=== PATIENT | female | born 1940 | race Caucasian/White ===

== ENCOUNTER 2022-01-04 11:28 | Emergency (ER) | payer MEDICARE ==
[2022-01-04 11:31] VITALS: TEMP 98
--- NOTE | 2022-01-04 11:48 | ED ---
General Adult HPI - General Chief complaint: Recheck/Abnormal Lab/Rx Stated complaint: abnl CT Time Seen by Provider: 01/04/22 11:29 Source: patient, family, RN notes reviewed Mode of arrival: wheelchair Limitations: no limitations - History of Present Illness Initial comments: Patient is a pleasant 81-year-old female presenting to the emergency department from CT department. Discussed with radiologist with regards to patient having an next pitcher subdural with shift. Patient states she did have 2 falls, on the first and second of this month. Patient did strike her head. Patient states her legs just gave out of on her and that's why she fell. Patient feels like she's been doing well since that time. is present and states patient has had a couple episodes of confusion where she was saying inappropriate words. Patient reportedly also was visualized dragging her left leg when she was trying to walk by the daughter. Patient does not take any anticoagulants other than 81 mg baby aspirin - Related Data Home Medications Medication Instructions Recorded Confirmed Acetaminophen Tab [Tylenol Tab] 1,000 mg PO BID 01/04/22 01/04/22 Aspirin EC [Ecotrin Low Dose] 81 mg PO HS 01/04/22 01/04/22 Bladder Control 1 tab PO BID 01/04/22 01/04/22 Cefuroxime [Ceftin] 250 mg PO Q12H 01/04/22 01/04/22 Cholecalciferol [Vitamin D3 (25 50 mcg PO DAILY 01/04/22 01/04/22 Mcg = 1000 Iu)] Glucosamine Sulfate 500 mg PO HS 01/04/22 01/04/22 Lovastatin [Mevacor] 20 mg PO HS 01/04/22 01/04/22 Multivitamins, Thera [Multivitamin 1 tab PO DAILY 01/04/22 01/04/22 (formulary)] [place]-3 Fatty Acids/Fish Oil [Fish 1 cap PO DAILY 01/04/22 01/04/22 Oil 1,000 mg Softgel] Omeprazole 20 mg PO BID 01/04/22 01/04/22 Turmeric Root Extract [Turmeric] 500 mg PO HS 01/04/22 01/04/22 Venlafaxine HCl [Effexor XR] 75 mg PO BID 01/04/22 01/04/22 Vit C/E/Zn/Coppr/Lutein/Zeaxan 1 cap PO DAILY 01/04/22 01/04/22 [Preservision Areds 2 Softgel] Allergies Allergy/AdvReac Type Severity Reaction Status Date / Time No Known Allergies Allergy Verified 01/04/22 11:58 Review of Systems ROS Statement: Those systems with pertinent positive or pertinent negative responses have been documented in the HPI. ROS Other: All systems not noted in ROS Statement are negative. Constitutional: Denies: fever Eyes: Denies: eye pain ENT: Denies: ear pain Respiratory: Denies: cough Cardiovascular: Denies: chest pain Endocrine: Denies: fatigue Gastrointestinal: Denies: abdominal pain Genitourinary: Denies: dysuria Musculoskeletal: Denies: back pain Skin: Denies: rash Neurological: Reports: as per HPI Past Medical History Past Medical History: No Reported History History of Any Multi-Drug Resistant Organisms: None Reported Past Surgical History: Orthopedic Surgery Past Psychological History: No Psychological Hx Reported Smoking Status: Never smoker Past Alcohol Use History: None Reported Past Drug Use History: None Reported General Exam Limitations: no limitations General appearance: alert, in no apparent distress Head exam: Present: atraumatic, normocephalic Eye exam: Present: normal appearance, PERRL, EOMI ENT exam: Present: normal oropharynx Neck exam: Present: normal inspection. Absent: tenderness Respiratory exam: Present: normal lung sounds bilaterally Cardiovascular Exam: Present: regular rate, normal rhythm GI/Abdominal exam: Present: soft. Absent: tenderness Extremities exam: Present: normal inspection, full ROM. Absent: tenderness Neurological exam: Present: alert, oriented X3, CN II-XII intact, normal gait (only Evaluated for 5 feet). Absent: motor sensory deficit Expanded Neurological exam: Present: protecting the airway Patient oriented to: Present: person, place, time Speech: Present: fluid speech Cranial nerves: EOM's Intact: Normal, Facial Sensation: Normal Sensory exam: Upper Extremity Light Touch: Normal, Lower Extremity Light Touch: Normal Motor strength exam: RUE: 5, LUE: 5, RLE: 5, LLE: 5 Eye Response: (4) open spontaneously Motor Response: (6) obeys commands Verbal Response: (5) oriented Psychiatric exam: Present: normal affect, normal mood Skin exam: Present: normal color Course Vital Signs 01/04/22 01/04/22 11:29 12:05 Temperature 98 F Pulse Rate 105 H 95 Respiratory 20 18 Rate Blood Pressure 102/63 101/72 O2 Sat by Pulse 96 96 Oximetry - Reevaluation(s) Reevaluation #1: 01/04/22 11:51 This time we will be getting touch with [facility] for probable transfer 01/04/22 12:08 Case was discussed with Dr. Luis, neurosurgeon as well as trauma surgeon Dr. Putnam who will both accept transfer. 01/04/22 12:09 Patient and family updated EKG Findings - EKG Comments: EKG Findings:: Sinus rhythm with rate of 97. CT 182. QRS 101. QT 3:30. QTC 384. Normal axis. Normal QRS. No acute ST change. Medical Decision Making - Lab Data Result diagrams: 01/04/22 11:53 Lab Results 01/04/22 Range/Units 11:53 WBC 8.0 (3.8-10.6) k/uL RBC 4.57 (3.80-5.40) m/uL Hgb 13.6 (11.4-16.0) gm/dL Hct 41.7 (34.0-46.0) % MCV 91.3 (80.0-100.0) fL MCH 29.8 (25.0-35.0) pg MCHC 32.6 (31.0-37.0) g/dL RDW 13.7 (11.5-15.5) % Plt Count 259 (150-450) k/uL MPV 7.6 Neutrophils % 74 % Lymphocytes % 19 % Monocytes % 5 % Eosinophils % 2 % Basophils % 0 % Neutrophils # 5.9 (1.3-7.7) k/uL Lymphocytes # 1.5 (1.0-4.8) k/uL Monocytes # 0.4 (0-1.0) k/uL Eosinophils # 0.1 (0-0.7) k/uL Basophils # 0.0 (0-0.2) k/uL - Radiology Data Radiology results: image reviewed (CT of the brain reveals large subdural on the right, 2.5 cm with shift of varying stages.) Critical Care Time Critical Care Time: Yes Total Critical Care Time: 31 Disposition Clinical Impression: Subdural hematoma Disposition: OTHER INSTITUTION NOT DEFINED Condition: Critical Is patient prescribed a controlled substance at d/c from ED?: No Referrals: Mak Mcdowell MD [Primary Care Provider] - 1-2 days Time of Disposition: 12:09 - Out of Hospital Transfer - Req. Specs Out of Hospital Transfer - Requested Specifics: Other Emergency Center
[2022-01-04 12:06] VITALS: BP 101/72; PULSE 95; RESP 18
[2022-01-04 12:06] LABS: Basophils % (A) 0 %; Eosinophils # (A) 0.1 k/uL (0-0.7); Eosinophils % (A) 2 %; HCT 41.7 % (34.0-46.0); HGB 13.6 gm/dL (11.4-16.0); Lymphocytes # (A) 1.5 k/uL (1.0-4.8); Lymphocytes % (A) 19 %; MCH 29.8 pg (25.0-35.0); MCHC 32.6 g/dL (31.0-37.0); MCV 91.3 fL (80.0-100.0); Mean Platelet Volume 7.6; Monocytes # (A) 0.4 k/uL (0-1.0); Monocytes % (A) 5 %; Neutrophils # (A) 5.9 k/uL (1.3-7.7); Neutrophils % (A) 74 %; Platelet Count 259 k/uL (150-450); RBC 4.57 m/uL (3.80-5.40); RDW 13.7 % (11.5-15.5)
[2022-01-04 12:24] LABS: ALT 18 U/L (4-34); AST 28 U/L (14-36); African American GFR (CKD) 85 (>60 ml/min/1.73 sqM); Albumin 4.3 g/dL (3.5-5.0); Alcohol <10 mg/dL; Alkaline Phosphatase 50 U/L (38-126); Anion Gap 8 mmol/L; Blood Urea Nitrogen 16 mg/dL (7-17); Calcium 9.7 mg/dL (8.4-10.2); Carbon Dioxide 26 mmol/L (22-30); Chloride 101 mmol/L (98-107); Glucose 119 mg/dL (74-99); Non-African American GFR(CKD) 74 (>60 ml/min/1.73 sqM); Potassium 4.1 mmol/L (3.5-5.1); Sodium 135 mmol/L (137-145); Total Bilirubin 0.6 mg/dL (0.2-1.3); Total Protein 8.1 g/dL (6.3-8.2)
[2022-01-04 12:28] LABS: INR 0.9 (<1.2); Partial Thromboplastin Time 22.5 sec (22.0-30.0); Prothrombin Time 9.9 sec (9.0-12.0)
== END 2022-01-04 12:30 | disposition other institution (70) ==
LOC: EC 11:28
DX: S06.5X9A Traumatic subdural hemorrhage with loss of consciousness of unspecified duration, initial encounter (principal); W19.XXXA Unspecified fall, initial encounter
CPT/HCPCS: 93005; 86900; 86901; 80053; 84484; 85025; 85610; 85730; 86850; 99285; G0480; 80320

== ENCOUNTER → 2022-01-04 | Outpatient (CLI) | payer MEDICARE ==
--- NOTE | 2022-01-04 11:26 | CT ---
EXAMINATION TYPE: CT brain wo con DATE OF EXAM: 01/04/2022 COMPARISON: None HISTORY: Falls, pain CT DLP: 1159 mGycm Automated exposure control for dose reduction was used. FINDINGS: There is a large right-sided subdural hematoma of varying age including chronic, subacute and acute c omponents with significant mass effect and subfalcine herniation the right lateral ventricle from rig ht to left measuring approximately 1 cm. Calvarium grossly intact. Craniocervical junction maintained. Orbits are symmetric. Changes of chroni c sinusitis. Case discussed with the emergency room physician. Patient was taken from the CT scan to the emergency room. IMPRESSION: LARGE RIGHT-SIDED SUBDURAL HEMATOMA MEASURING 2.5 CM IN THICKNESS WITH COMPONENTS OF ACUTE, SUBACUTE , AND CHRONIC HEMORRHAGE. SIGNIFICANT MASS EFFECT AND BRAIN HERNIATION WITH SUBFALCINE HERNIATION FRO M RIGHT TO LEFT MEASURING APPROXIMATELY 1 CM CROSS THE MIDLINE.
== END | disposition home or self-care (01) ==
LOC: RADCTMAIN 10:58
PROVIDERS: ATTEND Internal Medicine Geriatric Medicine
DX: S06.5X9A Traumatic subdural hemorrhage with loss of consciousness of unspecified duration, initial encounter (principal); G45.9 Transient cerebral ischemic attack, unspecified; G93.5 Compression of brain; X58.XXXA Exposure to other specified factors, initial encounter
CPT/HCPCS: 70450

== ENCOUNTER → 2022-10-19 | Outpatient (CLI) | payer MEDICARE ==
[2022-10-19 14:44] LABS: HCT 35.7 % (37.2-46.3); HGB 11.8 g/dL (12.0-15.0); MCH 29.6 pg (27.0-32.0); MCHC 33.1 g/dL (32.0-37.0); MCV 89.5 fL (80.0-97.0); NRBC Per 100 WBC 0 /100 WBCS (0.0-0.0); Platelet Count 210 X 10*3/uL (140-440); RBC 3.99 X 10*6/uL (4.10-5.20); RDW 13.3 % (11.5-14.5); WBC 6.41 X 10*3/uL (4.50-10.00)
[2022-10-19 14:54] LABS: African American GFR (CKD) 65.4 (60.0-200.0); Anion Gap 10.8 mmol/L (10.00-18.00); Blood Urea Nitrogen 18.8 mg/dL (9.0-27.0); Carbon Dioxide 24.4 mmol/L (20.0-27.5); Non-African American GFR(CKD) 56.5 (60.0-200.0); Potassium 4.8 mmol/L (3.5-5.5)
== END | disposition home or self-care (01) ==
LOC: LABPAT 09:44
PROVIDERS: ATTEND Internal Medicine Interventional Cardiology
DX: Z01.812 Encounter for preprocedural laboratory examination (principal); R94.39 Abnormal result of other cardiovascular function study
CPT/HCPCS: 80051; 82565; 84520; 85027

== ENCOUNTER 2022-10-28 08:46 | Day surgery (SDC) | payer MEDICARE ==
[~2022-10-28 08:46] MED LIST: ALPRAZolam 0.25 MG TAB PO PRN; ALPRAZolam 0.5 MG TAB PO PRN; ASPIRIN 325 MG TAB PO STA; ATORVASTATIN 80 MG TAB PO STA; HEPARIN SODIUM,PORCINE 10,000 UNIT in SODIUM CHLORIDE 0.9% 1,000 ML IRRIGATION PRN; HEPARIN SODIUM,PORCINE 2,500 UNIT in SODIUM CHLORIDE 0.9% 250 ML IRRIGATION PRN; NITROGLYCERIN SL TABS 0.4 MG TAB SUBLINGUAL PRN
[2022-10-28] MEDS ORDERED: SODIUM CHLORIDE 0.9% 1,000 ML IV ONE ×2 (08:50→12:14)
[2022-10-28 09:25] LABS: Basophils % (A) 0 %; Eosinophils # (A) 0.2 k/uL (0-0.7); Eosinophils % (A) 3 %; HCT 36.5 % (34.0-46.0); HGB 12.4 gm/dL (11.4-16.0); Lymphocytes # (A) 1.5 k/uL (1.0-4.8); Lymphocytes % (A) 25 %; MCH 30.1 pg (25.0-35.0); MCHC 33.9 g/dL (31.0-37.0); MCV 88.7 fL (80.0-100.0); Mean Platelet Volume 8.8; Monocytes # (A) 0.3 k/uL (0-1.0); Monocytes % (A) 5 %; Neutrophils % (A) 65 %; Platelet Count 204 k/uL (150-450); RBC 4.11 m/uL (3.80-5.40); WBC 6.2 k/uL (3.8-10.6)
[2022-10-28] MEDS ORDERED: VERAPAMIL 2.5 MG/ML 2 ML AMP ONE (11:02)
[2022-10-28] MEDS ORDERED: HEPARIN SODIUM 1,000 UN/ML (10ML VL) ONE (11:30)
[2022-10-28] MEDS: MIDAZOLAM 2 MG/2 ML VIAL IVP ONE ×3 (11:37→13:36)
[2022-10-28] MEDS ORDERED: LIDOCAINE 1% INJ 10MG/ML (30 ML VIAL-PF) SQ ONE (11:43)
[2022-10-28] MEDS: HEPARIN SODIUM 1,000 UN/ML (10ML VL) IV ONE ×3 (12:12→13:20)
[2022-10-28] MEDS: NITROGLYCERIN 1000MCG/10ML SYRINGE INTRACORON ONE ×7 (12:17→13:23)
[2022-10-28] MEDS ORDERED: IOPAMIDOL-370 100ML BTL INJ ONE ×6 (12:20→13:38)
[2022-10-28] MEDS ORDERED: HYDROmorphone 0.5 MG/0.5 ML SYRINGE IVP ONE (12:20)
[2022-10-28] MEDS ORDERED: CLOPIDOGREL 75 MG TAB ONE (12:28)
[2022-10-28] MEDS ORDERED: CLOPIDOGREL 75 MG TAB PO ONE (12:35)
[2022-10-28] MEDS ORDERED: ONDANSETRON 4 MG/2 ML VIAL ONE (12:47)
[2022-10-28] MEDS ORDERED: ONDANSETRON 4 MG/2 ML VIAL IVP ONE (12:49)
[2022-10-28] MEDS ORDERED: IOPAMIDOL-370 50ML BTL INJ ONE ×2 (13:24)
[2022-10-28] MEDS ORDERED: SODIUM CHLORIDE 0.9% 1,000 ML IV SCH (13:45)
[2022-10-28] MEDS ORDERED: ATROPINE SULFATE 0.1 MG/ML 10ML SYRINGE IV PRN (13:55)
[2022-10-28] MEDS ORDERED: RX INFO: IV CONTRAST WAS GIVEN 1 EACH MISC MISCELLANE PRN (13:55)
[2022-10-28] MEDS ORDERED: ZOLPIDEM 5 MG TAB PO PRN (13:55)
[2022-10-28] MEDS ORDERED: MAG HYDROX/AL HYDROX/SIMETH 30 ML CUP PO PRN (13:55)
[2022-10-28] MEDS: SODIUM CHLORIDE 0.9% 1,000 ML in EMPTY BAG 1 BAG IV SCH ×3 (19:30→23:53)
[2022-10-28] MEDS: LOSARTAN 25 MG TAB PO SCH (19:38)
[2022-10-28] MEDS: VENLAFAXINE HCL ER 75 MG CAP PO SCH (19:40)
[2022-10-28] MEDS: ACETAMINOPHEN TAB 500 MG TAB PO SCH (19:40)
[2022-10-28] MEDS: METOPROLOL TARTRATE 25 MG TAB PO SCH (19:40)
[2022-10-28] MEDS ORDERED: ATORVASTATIN 40 MG TAB PO SCH (21:00)
[2022-10-28] MEDS ORDERED: PANTOPRAZOLE 40 MG TABLET PO SCH (21:00)
[2022-10-28] MEDS ORDERED: NON FORMULARY DRUG (Turmeric Root Extract [Turmeric] 500 MG Capsule) PO SCH (21:00)
--- NOTE | 2022-10-28 22:52 | CC ---
CARDIAC CATHETERIZATION REPORT CARDIAC CATHETERIZATION AND PTCA: DATE OF SERVICE: 10/28/2022. PROCEDURES PERFORMED: 1. Left heart catheterization and coronary angiography. 2. Intravascular ultrasound of left anterior descending coronary artery. 3. Percutaneous transluminal coronary angioplasty and stenting of mid left anterior descending coronary artery with drug-eluting stents. PERFORMED BY: Dr. Rigoberto García. Moderate conscious sedation time was 121 minutes. The patient was administered Versed. Oxygen saturation, hemodynamics, and EKG were monitored closely. This patient was advised to be on dual-antiplatelet therapy with aspirin and Plavix without interruption for 1 year. CLINICAL INFORMATION: Ms. Mell Yeh is an 82-year-old lady with a known history of hypertension and hyperlipidemia. She had a CAT scan performed, which revealed heavily calcified coronary arteries. I performed a stress test, which revealed inferolateral apical reversible defect; and therefore, I advised cardiac catheterization. She wished to have her cardiac catheterization performed from the right femoral approach rather than radial approach. Risks, benefits, options, and rationale were carefully explained. She understood all details and wished to proceed with the procedure. PROCEDURE NOTE: Under local anesthesia and strict aseptic precautions, a 6-Iranian introducer was placed in the right femoral artery. Using standard Mamie catheters, I performed coronary angiography, and a pigtail catheter was used to check LV pressure, but LV gram was not performed. Subsequently, I noted that there was a calcified lesion in the mid LAD and a focal area of nearly 60% stenosis, for which I advised iFR, and if significant, I would perform intervention. I did perform iFR, which revealed that it was 0.72, and I proceeded to perform intervention. Following the intervention, the sheath was sutured, and she was sent to the room in a stable condition. The patient tolerated the procedure well. It was somewhat prolonged because of heavy calcification requiring multiple stents. CARDIAC CATHETERIZATION FINDINGS: The left ventricular end-diastolic pressure was about 10 mmHg. There is a gradient of 25 mmHg on a pullback with a pigtail catheter. This suggests [id number] aortic stenosis. CORONARY ANGIOGRAPHY FINDINGS: RIGHT CORONARY ARTERY: Mqzxdxim-nm-lmvexgb calcified vessel, somewhat of a superior takeoff. Mid area is moderately calcified with a 35% narrowing. Distally, it bifurcates into PDA and several smaller branches. All of these have minor irregularities, but no significant disease. RCA, therefore, is a superdominant vessel, hvnw-tt-asxexaiq calcification in the mid portion, no significant stenosis. Distal branches including PDA and PLV have minor irregularities. LEFT MAIN CORONARY ARTERY: Short, patent vessel, free of significant disease. Trifurcates into what seems to be an LAD, ramus, and circumflex vessel. Left main itself is free of significant disease. LEFT ANTERIOR DESCENDING CORONARY ARTERY: This is a good-caliber vessel, heavily calcified in the mid portion. Proximally, caliber is large. Gives off 2 diagonal branches. The second diagonal branch has a 60% narrowing, fair caliber, fair distribution vessel of about 2.0 mm. Then, the vessel continues and gives off a third small diagonal branch, and following this diagonal branch, there is a long area of heavy calcification, and within that calcified area, there is a 60% to 70% narrowing, after which the caliber improves, and the vessel runs all the way to the apex. It curves over the apex to supply the inferoapical lateral portion. LAD, therefore, is a large vessel that supplies the inferoapical lateral portion as well. In the midportion, there is heavy calcification with a focal 60% to 70% narrowing. RAMUS INTERMEDIUS: This is a fair caliber, fair distribution vessel that runs laterally, tortuous, has about a 40% to 50% proximal/mid lesion. The caliber then improves and runs towards the apex. No critical lesions. LEFT POSTERIOR CIRCUMFLEX CORONARY ARTERY: This is a nondominant vessel, gives off single obtuse marginal, then has an AV groove, minor irregularities, no significant disease. FINAL IMPRESSION: This patient has normal filling pressures, sajg-sj-ppeiccdj aortic stenosis with a pullback gradient of 25 mmHg. A right-dominant system with noncritical calcified lesions in the right coronary artery of about 35% to 40%. Left main and circumflex are free of significant disease. Ramus has a 40% to 50% proximal lesion. Left anterior descending has a long area of calcification in the midportion with a 60% focal lesion. LV-gram was not performed. RECOMMENDATIONS: I recommended FFR and if significant to proceed with PCI of mid LAD. PCI PROCEDURE DETAILS: I used a JL3.5 guide catheter to cannulate the left coronary artery and used an FFR wire. This was kept distally. Prior to advancing the wire, the calibration was done appropriately with zeroing and normalization. The wire was kept distally, and iFR was checked. It was 0.72. A decision was made to proceed with PCI. The same wire was used. Over this wire, I advanced a 2.5-caliber 12-mm NC Trek balloon and dilated this area. This was a calcified vessel. I was able to open it up with improvement in angiographic appearance. I then deployed a 12-mm long 3.5-caliber Xience stent. Fairly decent angiographic result was achieved, but I noted that proximal to the stented area, there was still some haziness, where a small diagonal branch took off, and this was addressed with a 3.25-caliber 12-mm long Xience stent. This was deployed at 15 atmospheres. Excellent angiographic result was achieved. I then tried to advance IVUS catheter over the FFR wire, but it was difficult. I then took the wire out and replaced it with a Runthrough wire. Over the Runthrough wire, I had difficulty advancing the IVUS catheter. I then decided that between the 2 stented areas, there was still an area of heavy calcification, and in IVET view, there was a lesion of nearly 60%. After some deliberation, I deployed a 3.5-caliber 8-mm stent between the 2 stents, and following this, I performed IVUS and noted that there was good expansion of the stent, but there was heavy calcification circumferentially throughout the stented area. After some deliberation, I decided to dilate the entire stented segment with a 4.0 NC Trek balloon. I took a 20-mm long NC Trek balloon of 4.0 caliber, and I dilated the entire stented segment up to 13 to 14 atmospheres. Excellent angiographic result was achieved with preserved flow in the diagonal and septal branches. The patient had mild chest discomfort and precordial subtle EKG changes. Overall, excellent angiographic result was achieved. ACT was about 245. I gave additional heparin of 1500 units. Towards the end of the procedure, ACT was 242. The patient received 600 mg of Plavix. The sheath was sutured. The intravascular ultrasound findings were very reassuring that there was good stent expansion. Details were discussed with the patient. She was sent to the room in stable condition. I went and spoke to the , and I explained to him the sequence of events, and we were very pleased with the eventual results. I expect she will be discharged tomorrow if she remains stable. The sheath will be pulled in 2 hours. Excellent angiographic result without complication was achieved. MMKY / ALDON: [id number] /
[2022-10-28 23:56] VITALS: RESP 16
[2022-10-29] MEDS ORDERED: SODIUM CHLORIDE 0.9% 1,000 ML IV SCH (06:00)
[2022-10-29 08:06] LABS: Basophils % (A) 0 %; Eosinophils # (A) 0.2 k/uL (0-0.7); Eosinophils % (A) 3 %; HCT 30.7 % (34.0-46.0); HGB 10.1 gm/dL (11.4-16.0); Hypochromasia Slight; Lymphocytes # (A) 1.6 k/uL (1.0-4.8); Lymphocytes % (A) 29 %; MCH 29.9 pg (25.0-35.0); MCHC 32.8 g/dL (31.0-37.0); MCV 91.1 fL (80.0-100.0); Mean Platelet Volume 8.8; Monocytes # (A) 0.3 k/uL (0-1.0); Monocytes % (A) 6 %; Neutrophils # (A) 3.4 k/uL (1.3-7.7); Neutrophils % (A) 59 %; Platelet Count 168 k/uL (150-450); RBC 3.37 m/uL (3.80-5.40); RDW 13.6 % (11.5-15.5); WBC 5.7 k/uL (3.8-10.6)
[2022-10-29 08:27] VITALS: BP 105/55; PULSE 85; TEMP 97.8
[2022-10-29 08:32] LABS: African American GFR (CKD) >90 (>60 ml/min/1.73 sqM); Anion Gap 1 mmol/L; Blood Urea Nitrogen 14 mg/dL (7-17); Calcium 8.4 mg/dL (8.4-10.2); Carbon Dioxide 31 mmol/L (22-30); Chloride 107 mmol/L (98-107); Glucose 94 mg/dL (74-99); Non-African American GFR(CKD) 81 (>60 ml/min/1.73 sqM); Potassium 4.7 mmol/L (3.5-5.1); Sodium 139 mmol/L (137-145)
[2022-10-29] MEDS ORDERED: MULTIVITAMINS, THERA 1 EACH TAB PO SCH (09:00)
[2022-10-29] MEDS ORDERED: VIT A,C & E-LUTEIN-MINERALS 1 EACH TAB PO SCH (09:00)
[2022-10-29] MEDS ORDERED: CLOPIDOGREL 75 MG TAB PO SCH (09:00)
[2022-10-29] MEDS ORDERED: CHOLECALCIFEROL 25 MCG (1000 IU) TABLET PO SCH (09:00)
[2022-10-29] MEDS ORDERED: ASPIRIN 81 MG PO SCH ×2 (09:00)
[2022-10-29] MEDS: ACETAMINOPHEN TAB 500 MG TAB PO SCH (09:05)
[2022-10-29] MEDS: VENLAFAXINE HCL ER 75 MG CAP PO SCH (09:06)
[2022-10-29] MEDS: METOPROLOL TARTRATE 25 MG TAB PO SCH (09:07)
[2022-10-29] MEDS: LOSARTAN 25 MG TAB PO SCH (09:07)
[2022-10-29 12:39] VITALS: BMI 29.4
--- NOTE | 2022-10-29 21:07 | DS ---
DISCHARGE SUMMARY DIAGNOSIS: Unstable angina with a positive stress test. PROCEDURES PERFORMED: Percutaneous transluminal coronary angioplasty and stenting of long lesion in mid left anterior descending with intravascular ultrasound with excellent result. Ms. Yeh is doing well. Her right groin is clean and dry with a good pulse. PHYSICAL EXAMINATION: VITAL SIGNS: Stable. NECK: No JVD. HEART: S1 and S2 heard normally. The systolic murmur at the base is audible. She has emuw-fp-celtqnmd aortic stenosis. LUNGS: Clear. ABDOMEN: Soft and nontender. Right groin is clean and dry. LABORATORY DATA: EKG and labs are unremarkable. PLAN: To increase activity. Discharge her on dual-antiplatelet therapy for 12 months. She will be seen in the office in the next week or so. Discharge instructions were given. Prescriptions were actually written out for her. MMODL / IJN: [id number] /
== END 2022-10-29 13:24 | disposition home health service (06) ==
LOC: CATHCVL 08:46 → 3SCARD 13:37 → CATHCVL 10-29 13:24
PROVIDERS: ATTEND Internal Medicine Interventional Cardiology
DX: I35.0 Nonrheumatic aortic (valve) stenosis (principal); I25.10 Atherosclerotic heart disease of native coronary artery without angina pectoris; E78.2 Mixed hyperlipidemia; I10 Essential (primary) hypertension; Z79.899 Other long term (current) drug therapy; Z79.82 Long term (current) use of aspirin
CPT/HCPCS: 92978; 93458; 93799; 80048; 85025 ×2; C9600; C1769 ×6; C1887; C1894; C1753; C1874 ×2; C1725 ×3; J2250; J2405; J2001; J1644; J1170; Q9967 ×2